=== PATIENT | female | born 1975 | race Caucasian/White ===

== ENCOUNTER 2021-07-28 13:01 | Outpatient (CLI) | payer OTHER, SELFPAY ==
[2021-07-28 13:15] VITALS: BP 137/91; PULSE 91; RESP 16; TEMP 36.6; O2SAT 99; BMI 49.6
[2021-07-28] MEDS: 0.9% Saline Lock 10 ML Syringe IV (13:21)
[2021-07-28 13:56] VITALS: BP 112/77; PULSE 88; RESP 16; TEMP 36.8; O2SAT 98
[2021-07-28 14:53] VITALS: BP 139/80; PULSE 89; RESP 16; TEMP 36.8; O2SAT 99
== END 2021-07-28 23:59 | disposition home or self-care (01) ==
LOC: MS3OUT 13:05 → MS3 13:06
PROVIDERS: PCP Family Medicine; Referring Provider Nurse Practitioner Acute Care; Visit Provider Nurse Practitioner Acute Care
DX: Z23 Encounter for immunization (principal); U07.1 COVID-19
CPT/HCPCS: J7050; M0245; Q0245; A4216

== ENCOUNTER → 2022-06-30 | Outpatient (CLI) | payer OTHER, SELFPAY ==
[2022-07-03 16:08] LABS: dPT CONFIRMATION RATIO 0.98 Ratio (0.00-1.34)
[2022-07-03 19:35] LABS: Antithrombin 3 Function 106 % (75-135)
[2022-07-08 12:08] LABS: Dilute Prothrombin Time (dPT) 33.9 sec (0.0-47.6); Dilute Russell Viper Venom 36.7 sec (0.0-47.0); PTT-LA 39.3 sec (0.0-51.9); Protein C Antigen 112 % (60-150); Protein S, Free 119 % (61-136); Thrombin Time 13.5 sec (0.0-23.0); dPT Confirm Ratio 0.97 Ratio (0.00-1.34)
[2022-07-08 14:30] LABS: Activated Protein C Resistance 2.8 ratio (2.2-3.5); Protein S, Funtional 118 % (63-140); Protein S, Total 125 % (60-150)
[2022-07-08 14:31] LABS: Anti-Cardiolipin Ab, IgA, Qn < 9 APL U/mL (0-11); Anti-Cardiolipin Ab, IgG, Qn < 9 GPL U/mL (0-14); Anti-Cardiolipin Ab, IgM, Qn < 9 MPL U/mL (0-12); Anti-Thrombin 3 AG, Immunol 82 % (72-124); Antithrombin 3 Function 108 % (75-135); Beta-2-Glycoprotein I IgA <9 (0-25); Beta-2-Glycoprotein I IgG <9 (0-20); Beta-2-Glycoprotein I IgM <9 (0-32); Interpretation Comment: (.); Protein C, Functional 125 % (73-180)
[2022-08-08 21:49] LABS: Miscellaneous Lab Procedure A
== END | disposition home or self-care (01) ==
LOC: LAB 14:26
PROVIDERS: PCP Student in an Organized Health Care Education/Training Program
DX: Z86.73 Personal history of transient ischemic attack (TIA), and cerebral infarction without residual deficits (principal)
CPT/HCPCS: 36415; 81240; 81241; 85300; 85301; 85302; 85303; 85305; 85306; 85307; 85705; 86146; 86147